=== PATIENT | female | born 1990 | race Caucasian/White ===

== ENCOUNTER 2019-04-27 00:10 | Inpatient (IN) ==
[~2019-04-27 00:10] MED LIST: *HR* Nalbuphine 10 MG/ML AMPUL IVP PRN; Famotidine 20 MG/2 ML VIAL IVP PRN; Metoclopramide 10 MG/2 ML VIAL IVP PRN; Naloxone 0.4 MG/ML INJ IVP PRN; Ondansetron 4 MG/2 ML VIAL IVP PRN; Penicillin G Potassium 5,000,000 UNIT in 0.9 % Sodium Chloride Mini Bag 100 ML IVPB ONE
--- NOTE | 2019-04-27 00:12 | OB/GYN History & Physical ---
Date of Encounter: 04/27/19 Time of Encounter: 00:08 Assessment and Plan (1) 35 weeks gestation of Current visit: Yes Status: Acute (2) labor in third trimester Current visit: Yes Status: Acute Admit for expectant management. Epidural when requested. PCN for GBS ppx. Celestone now. Anticipate . Qualifiers: labor delivery status: with delivery in third trimester Fetus number: single or unspecified fetus Qualified Code(s): O60.14X0 - labor third trimester with delivery third trimester, not applicable or unspecified (3) Rh negative state in antepartum period Current visit: Yes Status: Acute History of Present Illness Chief complaint: labor HPI: Ms. Moscoso is a 28 year old female presenting at 35w6d with c/o contractions that have been four minutes apart for the last few hours. The contractions started this am. She reports some spotting. No leaking fluid. No other complaints. A negative Rubella immune Serologies negative GBS unknown Past Med Surg Social Fam HX - Past Medical History Source: patient Medical history: no medical history - Past Surgical History Surgical History: non-contributory - Social History Smoking Status: Never smoker Alcohol use: none Drug use: none Obstetrical History - Pregnancies : 1 Medications and Allergies Pnv95/Ferrous Fumarate/FA [ Vitamin Tablet] 1 each PO 04/27/19 [History] Review of System OB All systems PM: reviewed and no additional remarkable complaints except as stated Exam - Constitutional Constitutional: well developed, well nourished, mild distress - HEENT HEENT: Mucus Membranes Moist - Lungs Respiratory exam: CTAB - Cardiovascular Cardiovascular exam: RRR - Abdomen Abdomen: Present: gravid, non tender - Extremities Extremities exam: normal inspection, pedal edema (mild bilaterally) - Vulva Vulva: bilateral: normal - Vagina Vagina: Present: normal moisture - Cervix Dilation: 6 Effacement: 100 Station: -1 (BBOW) - Anus/Rectum Anus/Rectum: Present: normal perianal skin Results All other labs normal. - VTE Reasons for not Prescribing Prophylaxis: Treatment not Indicated - Low risk for VTE
[2019-04-27] MEDS ORDERED: Ringers Solution, Lactated 1,000 ML IVC SCH (00:15)
[2019-04-27 00:26] LABS: Basophils # 0.1 K/mcL (0.0-0.2); Basophils % 0.3 %; Eosinophils # 0.2 K/mcL (0.0-0.6); Eosinophils % 1.3 %; Hematocrit 36.9 % (35.3-44.9); Hemoglobin 12.3 g/dL (11.5-15.4); Immature Granulocytes % 0.4 % (0-4); Lymphocytes # 2.2 K/mcL (0.6-4.6); Lymphocytes % 12.9 %; Mean Corpuscular HGB Conc 33.3 g/dL (31.6-35.5); Mean Corpuscular Hemoglobin 28.7 pg (28.0-33.3); Mean Platelet Volume 10.3 fL (9.4-12.4); Monocytes # 0.7 K/mcL (0.0-1.3); Monocytes % 4.4 %; Neutrophils # 13.4 K/mcL (1.6-8.9); Platelet Count 286 K/mcL (140-400); Red Blood Count 4.29 M/mcL (3.82-4.97); Red Cell Distribution Width 12.5 % (11.5-14.5); Segmented Neutrophils % 80.7 %; White Blood Count 16.7 K/mcL (4.3-11.1)
[2019-04-27 00:39] LABS: Amphetamine Screen,Urine Negative ng/mL (Cutoff=1000); Barbiturate Screen,Urine Negative ng/mL (Cutoff=200); Benzodiazepines Screen,Urine Negative ng/mL (Cutoff=200); Cannabinoid Screen,Urine Negative ng/mL (Cutoff = 50); Cocaine Screen,Urine Negative ng/mL (Cutoff= 300); Opiate Screen,Urine Negative ng/mL (Cutoff=300); Phencyclidine Screen,Urine Negative ng/mL (Cutoff=25)
[2019-04-27] MEDS ORDERED: Bupivacaine-MPF 0.25% 10 ML VIAL EP ONE (00:56)
[2019-04-27] MEDS ORDERED: *HR* FentaNYL (PF) 100 MCG/2 ML VIAL EP ONE (00:56)
[2019-04-27] MEDS ORDERED: Epidural Premix (fent/bupiv) 110 ML EP SCH (01:00)
[2019-04-27] MEDS ORDERED: Epidural Premix (fent/bupiv) 110 ML EP ONE (01:02)
--- NOTE | 2019-04-27 01:58 | Anesthesia Evaluation PreOp ---
Date of Encounter: 04/27/19 Time of Encounter: 01:11 - Past History Planned Operation: INEZ Cardiac History: Denies any Significant Hx Pulmonary History: Denies Any Significant HX MANAGER FLOAT History: Denies Any Significant HX Other Medical History: Denies Any Significant HX Anesthesia History: No Prior Anesthetic Complications (never had NA; denies personal and family h/o GA complications), Past Anesthesia (tonsillectomy) : Yes Alcohol Use: none Drug use: none Medications and Allergies Pnv95/Ferrous Fumarate/FA [ Vitamin Tablet] 1 each PO DAILY 04/27/19 [History] Allergy/AdvReac Type Severity Reaction Status Date / Time prednisone Allergy Chest Pain Verified 04/27/19 00:33 - Meds/Allergy Pre-op Review Medications Reviewed: Yes Allergies Reviewed: Yes Beta Blockers on Current Med List: No Anesthesia Results - Labs 04/27/19 00:05 Anesthesia Exam 123/87, HR 86 O2 Sat Height 1.52 m Height 1.52 m Weight 63.503 kg Weight 63.503 kg NPO (# of Hours): solids > 7hrs Pain Scale: 9 Pain Scale Used: Numeric (1 - 10) - HEENT Pupil (Motor): Pupils equal Mallampati: II Teeth: Normal Oral Opening: Greater than 3 - MANAGER FLOAT LOC: Oriented MANAGER FLOAT Motor: Normal RUE, Normal LUE, Normal RLE, Normal LLE, Normal Face MANAGER FLOAT Sensory: Normal: RUE, LUE, RLE, LLE, Face - Cardiac Rhythm: Regular Murmur: None - Pulmonary Breath Sounds: bilateral Clear Respiratory Effort: Symmetrical Anesthesia Assess/Plan ASA Score: 2 Level of consciousness: Cooperative, Oriented, Restless Anesthetic Plan: Epidural Autologous Blood: No Monitoring Plan: Standard Monitors Recovery Plan: Other
--- NOTE | 2019-04-27 02:02 | Anesthesia Procedures ---
Date of Encounter: 04/27/19 Time of Encounter: 01:58 Procedures: Anesthesia - Epidural/Spinal Patient ID/Chart reviewed: Yes Patient examined: Yes OB Eval: Gestational age: 35 weeks 6 days OB Eval: : 1 OB Eval: Hx Para: 0 OB Eval: Dilated at (cm): 6 OB Eval: Contractions: Non-stressed pattern Consent Obtained: Yes Supplemental Oxygen: None/Room Air Site Prep: Aseptic Technique, Sterile prep and drape, 0.5% Chlorhexidine/Alcohol Patient position: upright Local Anesthetic: Lidocaine 1% Amount of Local Anesthetic used: 10 Touhy Needle Gauge: 18 Touhy Needle Depth (cm): 6 Catheter Depth at Skin (cm): 11 Test Dose (1.5% Lido + Epi): Volume given (mls): 5 Test Dose Result: Negative Loading Dose: 0.25% Marcaine (mls): 5 Loading Dose: Fentanyl (mcg): 100 Loading Dose Administered: Thru Catheter Infusion Med: 0.125% Bupivacaine w/ 2 mcg/ml Fentanyl Infusion Rate (mls/hr): 12 (demand bolus of 5mL q30min PRN) Catheter Secured in Place: Tegaderm, Tape Interspace Used: L5-S1 Loss of Resistance (PATRICIO): Yes Blood: Yes (at L4/5 interspace attempt) CSF: No Paresthesia: No Procedure: Required multiple attempts: Attempt #1: L4/5 successful PATRICIO @5cm obtained on first pass but catheter threaded accidentally into epidural vein; was able to withdraw catheter to 8cm abby with no blood being aspirated but (+) test dose so catheter removed Attempt #2: L3/4: unsuccessful attempts at obtaining PATRICIO Attempt #3: L5/S1: successful PATRICIO @6cm on first pass. Vitals + FHT's: see Kayla BOGGS's electronic records for VS entry.
--- NOTE | 2019-04-27 02:18 | OB Labor Progress Note ---
Date of Encounter: 04/27/19 Time of Encounter: 02:16 Labor Progress Note - Subjective Subjective: Pt comfortable with epidural. - Vital Signs Vital Signs: VSS - Cervix Cervix: 8/100/0, BBOW - Heart Tones Heart Tones: Decelerations noted after epidural procedure. Unable to trace contractions initially but timing would suggest early decelerations based on palpation of contractions. FHT improved after left lateral positioning and oxygen administration. - Bergoo Bergoo: Q 2.5 minutes - Interventions Interventions: repositioning, oxygen - Plan Plan: Continue to monitor. PCN for GBS ppx. Will consider AROM after second dose of PCN if delivery is imminent.
[2019-04-27] MEDS ORDERED: Acetaminophen 325 MG TABLET PO ONE (03:28)
[2019-04-27] MEDS ORDERED: Penicillin G Potassium 2,500,000 UNIT in 0.9 % Sodium Chloride 100 ML IVPB SCH (04:00)
[2019-04-27] MEDS ORDERED: Gentamicin 90 MG in 0.9 % Sodium Chloride 100 ML IVPB ONE (04:41)
[2019-04-27] MEDS ORDERED: Oxytocin 20 units/ LR 1000 mL 20 UNIT/1,000 ML BAG IVC ONE (04:59)
--- NOTE | 2019-04-27 05:39 | OB/GYN Procedure Note ---
Delivery - Delivery Date: 04/27/19 Provider: Blanka Araiza Intrapartum events: febrile- temp >100.3 Delivery induction: none Delivery augmentation: rupture of membranes (at 10cm dilation) Delivery monitor: external FHT, external uterine Anesthesia: epidural Quantitated Blood Loss: 100 (.) - (s) Infant A Delivery Date: 04/27/19 Infant Delivery Time: 05:07 Presentation: vertex Position: MARÍA Route of delivery: Gender: Male Viability: Viable Pounds: 5 Ounces: 12 Weight Gram: 2.615 kg at 1 minute: 4 at 5 mins: 7 Shoulder Dystocia: not encountered Specimens collected: cord blood, venous cord gases, arterial cord gases Cord: nuchal cord (x2), nuchal reduced - Repair Episiotomy: none Laceration Description: Labial (left labial) - Complications Delivery complications: none - Disposition Mom disposition: stable in LDR [place] disposition: stable in LDR - Comments Comments: Pt presented in active labor 6cm with a BBOW at 35w6d. She received an epidural for pain and progressed normally to complete dilation. AROM was performed at this time due to some variable declerations. Pt developed a fever while pushing and received tylenol. Gentamicin was ordered but pharmacy stated that a creatinine level would be needed before the medication could be dispensed and the patient delivered before that could be accomplished. She underwent for viable male weighing 5lbs 12oz with apgars 4 at one minute and 7 at five minutes. After a 30 second delay the decision was made to clamp and cut the umbilical cord so infant could be handed to nursery staff in attendance. The placenta then delivered spontaneous and intact. A small left labial laceration was repaired with 4-0 monocryl. EBL 100ml. Mother and baby stable in kangaroo care following procedure.
[2019-04-27] MEDS ORDERED: Acetaminophen 325 MG TABLET PO PRN (08:05)
[2019-04-27] MEDS ORDERED: Lanolin 7 G OINT...G. TP PRN (08:05)
[2019-04-27] MEDS ORDERED: Rho Immune Globulin 1,500 UNIT SYRINGE IM PRN (08:05)
[2019-04-27] MEDS ORDERED: Benzocaine/Menthol 56 GM AEROSOL SPRAY TP PRN (08:05)
[2019-04-27] MEDS ORDERED: Oxytocin 20 units/ LR 1000 mL 20 UNIT/1,000 ML BAG IVC SCH (08:05)
[2019-04-27] MEDS: Prenatal Vit/FA 1 EACH TABLET PO SCH (08:52)
[2019-04-27] MEDS: Ibuprofen 600 MG TABLET PO PRN ×3 (08:53→20:13)
[2019-04-28] MEDS: Ibuprofen 600 MG TABLET PO PRN ×3 (04:17→16:12)
[2019-04-28] MEDS: Prenatal Vit/FA 1 EACH TABLET PO SCH (09:58)
--- NOTE | 2019-04-28 11:31 | OB/GYN Progress Note ---
Date of Encounter: 04/28/19 Time of Encounter: 11:29 - Assessment and Plan (1) Vaginal delivery Current Visit: Yes Status: Acute Continue routine care discharge home tomorrow follow up with Dr. Pineda in 4-6 weeks (2) Breast feeding status of mother Current Visit: Yes Status: Acute Subjective - Subjective Principal diagnosis: day 1 Interval history: Patient is day 1. Infant is in scn. Mother had a fever at delivery. Placenta cultures are pending. Patient is breast feeding Patient reports: appetite normal, voiding normally, pain well controlled, ambulating normally : in NICU (Patient is currently using the breast pump) Objective - Latest Vital Signs Latest vital signs: Vital Signs Temp Pulse Resp BP Pulse Ox 04/28/19 04:15 97.9 F 72 14 117/81 99 04/27/19 20:10 97.7 F 69 16 123/86 99 Intake and Output 04/27/19 04/28/19 04/28/19 23:59 07:59 15:59 Output Total 350 / 650 200 / 200 Balance -350 / -650 -200 / -200 Output: Urine 350 / 650 200 / 200 - Exam Lungs: bilateral: normal Chest: Normal S1, Normal S2 Extremities: Present: normal Abdomen: Present: normal appearance, gravid Uterus: Present: normal, firm Uterus Position: At Umbilicus, Midline
[2019-04-29] MEDS: Ibuprofen 600 MG TABLET PO PRN ×2 (01:49→09:48)
[2019-04-29 08:25] VITALS: BP 118/86
[2019-04-29] MEDS: Prenatal Vit/FA 1 EACH TABLET PO SCH (09:48)
--- NOTE | 2019-04-29 11:42 | Discharge Summary ---
Date of Encounter: 04/29/19 Time of Encounter: 11:40 - Discharge Diagnosis (1) Breast feeding status of mother Priority: Secondary Status: Acute (2) Vaginal delivery Priority: Primary Status: Acute Comments: Stable, meeting PP milestones, currently with spinal headache, but up and able to ambulate around room, tolerates diet, bleeding minimal, , desires discharge. - Discharge Medications Prescriptions: New Acetaminophen [Tylenol] 650 mg PO Q6HR PRN tablet PRN Reason: Mild Pain Ibuprofen [Motrin] 600 mg PO Q6HR PRN #60 tablet PRN Reason: Cramping Benzocaine/Menthol [place] [Dermoplast [place]] 1 appl TP QID PRN aerosol PRN Reason: See Comments Docusate [Colace] 100 mg PO BID #30 capsule Lanolin [Lansinoh] 1 appl TP Q4HR PRN oint...g. PRN Reason: Continued Pnv95/Ferrous Fumarate/FA [ Vitamin Tablet] 1 each PO DAILY Home Medications: Pnv95/Ferrous Fumarate/FA [ Vitamin Tablet] 1 each PO DAILY 04/27/19 [History] Acetaminophen [Tylenol] 650 mg PO Q6HR PRN tablet 04/29/19 [Rx] Benzocaine/Menthol [place] [Dermoplast [place]] 1 appl TP QID PRN aerosol 04/29/19 [Rx] Docusate [Colace] 100 mg PO BID #30 capsule 04/29/19 [Rx] Ibuprofen [Motrin] 600 mg PO Q6HR PRN #60 tablet 04/29/19 [Rx] Lanolin [Lansinoh] 1 appl TP Q4HR PRN oint...g. 04/29/19 [Rx] Allergies/Adverse Reactions: Allergy/AdvReac Type Severity Reaction Status Date / Time prednisone Allergy Chest Pain Verified 04/27/19 00:33 Data Procedures and tests throughout hospitalization: Laboratory Tests 04/27/19 04/27/19 04/27/19 00:05 00:17 05:45 WBC 16.7 H RBC 4.29 Hgb 12.3 Hct 36.9 MCV 86.0 MCH 28.7 MCHC 33.3 RDW 12.5 Plt Count 286 MPV 10.3 Immature Gran % 0.4 Seg Neutrophils % 80.7 Lymphocytes % 12.9 Monocytes % 4.4 Eosinophils % 1.3 Basophils % 0.3 Neutrophils # 13.4 H Lymphocytes # 2.2 Monocytes # 0.7 Eosinophils # 0.2 Basophils # 0.1 Urine Opiates Screen Negative Ur Buprenorphine Scrn Negative Ur Barbiturates Screen Negative Ur Phencyclidine Scrn Negative Ur Amphetamines Screen Negative U Benzodiazepines Scrn Negative Urine Cocaine Screen Negative U Marijuana (THC) Screen Negative Ur Drug Screen Interp See Below Screen NEGATIVE Baby's Blood Type A RH POSITIVE Mother's Blood Type A RH NEGATIVE Rhogam Indicated YES Rhogam Req for Mother 1 Labs on day of discharge: Preliminary micro results at discharge 04/27/19 05:30 Placental Culture - Preliminary Placenta 04/27/19 05:30 Anaerobic Culture - Preliminary Placenta Culture is incubating. Date of admission: 04/27/19 00:10 Primary care physician: PCP NONE Consults: 04/27/19 08:05 Consult to [facility]acker [CONS] Routine Comment: Vaginal delivery, consult needed Discharging clinician: Tania Vela Anticipated date of discharge: 04/29/19 - Patient Status Disposition: Home, Self-Care Condition: Good Overall status at discharge: patient is progressing back to baseline - Discharge Instructions Follow Up With: NONE,PCP [Primary Care Provider] - Martir Pineda MD [Partnered Physician] - - Diet and Activity Activity: resume usual activities as tolerated Diet: regular diet Hospital Course Reason for admission: IUP at term Delivery: Episiotomy: none Laceration: other Other procedures: none complications: spinal headache Discharge diagnosis: IUP at term delivered [place] baby: male Hospital course: Delivery - Delivery Date: 04/27/19 Provider: Blanka Araiza Intrapartum events: febrile- temp >100.3 Delivery induction: none Delivery augmentation: rupture of membranes (at 10cm dilation) Delivery monitor: external FHT, external uterine Anesthesia: epidural Quantitated Blood Loss: 100 (.) - Infant (s) Infant A Infant Delivery Date: 04/27/19 Infant Delivery Time: 05:07 Presentation: vertex Position: MARÍA Route of delivery: Gender: Male Viability: Viable Pounds: 5 Ounces: 12 Weight Gram: 2.615 kg at 1 minute: 4 at 5 mins: 7 Shoulder Dystocia: not encountered Specimens collected: cord blood, venous cord gases, arterial cord gases Cord: nuchal cord (x2), nuchal reduced - Repair Episiotomy: none Laceration Description: Labial (left labial) - Complications Delivery complications: none - Disposition Mom disposition: stable in PP and appropriate for discharge Time Attestation: Total time spent providing and/or coordinating discharge services: Time Spent: Less than 30 minutes Exam - Constitutional Vitals: Temp Pulse Resp BP Pulse Ox 98 F 65 20 118/86 98 04/29/19 08:24 04/29/19 08:24 04/29/19 08:24 04/29/19 08:24 04/29/19 08:24 General appearance IM: A&O X 3 - Respiratory Respiratory exam: Present: CTAB - Cardiovascular Cardiovascular exam IM: Present: RRR - GI/Abdominal GI/Abdominal exam IM: soft - Uterine Tone: Firm Uterus Position: At Umbilicus - Extremities Exam Extremities exam IM: Present: normal capillary refill, normal inspection - Neurological Exam Neurological exam: normal gait, oriented X3 - Psychiatric Additional comments: reports good mood
--- NOTE | 2019-04-29 11:48 | Anesthesia Progress Note ---
Date of Encounter: 04/29/19 Time of Encounter: 11:34 Anesthesia Note - Note Note: 04/29/19 11:34 Called to patient's room for c/o headache 03/20 s/p epidural for vaginal delivery on 04/27/19. Pt standing upon entering room and states she just got out of the shower and is now gathering her belongings in preparation of discharge home. She described a headache in the base of her skull and into her neck. She states that it is partially relieved when lying flat. She denies any photophobia, blurred vision or nausea. She also denies any other symptoms. She never volunteered or asked to sit or lie down during our 10 minute conversation. Although she rubbed her neck several times while we talked, she was smiling and seemed generally in a good mood. Able to ambulate without difficulty. Lung sounds clear, heart tones normal. No cranial nerve deficits. Full range of motion of neck. Pupils normal and reactive to light. Review of records indicate multiple attempts (3) at epidural prior to successful placement. Although her symptoms are more mild and she could have strained her neck during labor, I believe her headache is likely caused by inadvertant dural puncture (strong postural component to headache and multiple attempts at placement). Her symptoms, however, are not severe enough to justify treatment with blood patch. After speaking to Dr Rubio, it was recommended to push fluids and moderate caffeine, tylenol as needed, and return to ED if symptoms worsen.
== END 2019-04-29 15:37 | disposition home or self-care (01) | DRG 806 ==
LOC: 1NENULAB → 1NENUOBS 08:39
PROVIDERS: ADMIT Registered Nurse; ATTEND Registered Nurse